=== PATIENT | male | born 1930 | race Caucasian/White ===

== ENCOUNTER 2016-05-05 11:02 | Day surgery (SDC) | payer MEDICARE, OTHER ==
[~2016-05-05 11:02] MED LIST: ACTIVASE50 MG IV; ACTOS15 M1 PO; ALDACTAZIDE 25/1 TAB; AMBIEN5 M1 PO; ARTHX DS CAPSUL1 CAP; ASPIRIN LOW STR81 MG; ASPIRIN81 M1 PO; BALSALAZIDE DI750 M4 PO; CALCIUM CARBON500 M2 PO; CALCIUM600 M1 PO; CERTAVITE-ANTI1 EACH PO; COLACE100 M1 PO; COLAZAL750 M1 PO; COLAZAL750 MG; CPAP; DEXTROSE 525 GM/501 IV; DIOVAN80 M1 PO; FENTANYL IV; FERROUS SULFAT325 MG PO; FISH OIL1 CAP; FLOMAX0.4 M1 PO; GABAPENTIN100 M1 PO; GLUCAGON HCL1 MG IM; GLUCOPHAGE1000 M1 PO; GLUCOPHAGE1000 MG; HYDROCODON-ACE1 EA16 PO; IRON1 TA1; LEVAQUIN750 M1 PO; LEVEMIR FL100 UNIT/2 SC; LEVEMIR100 UNITS/ SC; LOVENOX40 MG/0.1 SC; METFORMIN HCL500 M5 PO; MILK OF MAGNESIA PO; MULTIVITAMIN1 CAP; MULTIVITAMINS1 EAC6 PO; NIACIN ER500 M1 PO; NIACIN PO; NIASPAN500 M1; NIASPAN500 M1 PO; NITROGLYCERIN0.4 M2 PO; NORCO 5-325 TA1 EACH PO; NOVOLOG100 UNITS/ SC; OMEGA 3 FISH O1 EACH PO; PERCOCET 5-3251 EACH PO; ROPINIROLE HCL2 M2 PO; SODIUM CHORIDE IV; SPIRONOLACTONE1 EACH PO; TYLENOL325 M2 PO; VICTOZA 2-0.6 MG/0.1; VITAMIN D250000 UNI1 PO; ZOSYN 4.54.5 GM/102 IV
[2016-05-12] MEDS ORDERED: LEVAQUIN750 M1 PO (09:11)
[2016-05-16] MEDS ORDERED: LEVAQUIN750 M1 PO (14:30)
[2016-06-05] MEDS ORDERED: LEVAQUIN750 M1 PO (14:37)
[2016-06-16] MEDS ORDERED: LASIX40 M1 PO (10:27)
[2016-08-19] MEDS ORDERED: NOVOLOG100 UNITS/ (15:21)
[2016-08-22] MEDS ORDERED: HYDROCODON-ACE1 EA16 PO (08:37)
[2016-09-29] MEDS ORDERED: REQUIP2 M1 PO (10:28)
[2016-09-29] MEDS ORDERED: VASCULERA630 MG PO (10:28)
[2016-09-29] MEDS ORDERED: PENTOXIFYLLINE400 M2 PO (10:29)
[2016-10-28] MEDS ORDERED: CERTAVITE-ANTI1 EACH PO (10:33)
== END 2016-05-06 18:00 ==
LOC: SRG 11:02 → SHSC 11:03 → ORW 12:56 → PACU 13:58 → BURN 16:00
PROVIDERS: Surgery
PROC: 0HRLXK3 Replacement of Left Lower Leg Skin with Nonautologous Tissue Substitute, Full Thickness, External Approach (ICD-10-PCS; principal; 2016-05-05)
DX: S81.802A Unspecified open wound, left lower leg, initial encounter (principal); I25.10 Atherosclerotic heart disease of native coronary artery without angina pectoris; E66.01 Morbid (severe) obesity due to excess calories; E78.5 Hyperlipidemia, unspecified; I87.2 Venous insufficiency (chronic) (peripheral); M19.032 Primary osteoarthritis, left wrist; M19.022 Primary osteoarthritis, left elbow; I12.9 Hypertensive chronic kidney disease with stage 1 through stage 4 chronic kidney disease, or unspecified chronic kidney disease; E11.22 Type 2 diabetes mellitus with diabetic chronic kidney disease; N18.9 Chronic kidney disease, unspecified; H91.90 Unspecified hearing loss, unspecified ear; N40.0 Benign prostatic hyperplasia without lower urinary tract symptoms; G47.30 Sleep apnea, unspecified; Z79.2 Long term (current) use of antibiotics; Z79.4 Long term (current) use of insulin; Z79.82 Long term (current) use of aspirin; Z79.899 Other long term (current) drug therapy; Z86.19 Personal history of other infectious and parasitic diseases; Z98.49 Cataract extraction status, unspecified eye; Z97.4 Presence of external hearing-aid; Z95.5 Presence of coronary angioplasty implant and graft; Z98.890 Other specified postprocedural states
CPT/HCPCS: J0171; J1170; J1580; J1815; J3010; J3370; Q4104

== ENCOUNTER 2016-05-20 05:34 | Day surgery (SDC) | payer MEDICARE, OTHER ==
[2016-05-21 06:21] LABS: BASO % 0.1 % (0-2); EOS % 0.6 % (0-7); EOSINOPHIL ABSOLUTE COUNT 0.1 tho/cmm (0.0-0.7); HCT-HEMATOCRIT 35.3 % (36.0-53.5); HGB-HEMOGLOBIN 11.5 gm/dl (13.5-17.0); IMMATURE GRANULOCYTES ABSOLUTE 0.03 tho/cmm (0-0.03); IMMATURE GRANULOCYTES PERCENT 0.4 % (0-0.3); LYMPH % 22.6 % (20-45); LYMPH ABSOLUTE COUNT 1.8 tho/cmm (0.8-4.5); MCH (MEAN CORPUSCULAR HGB) 29.2 pg (28.0-32.0); MCHC MEAN CORPUSCULAR HGB CONC 32.6 % (32.0-36.0); MCV (MEAN CELL VOLUME) 89.6 fl (82.0-96.0); MEAN PLATELET VOLUME 8.5 cmc (9.4-12.4); MONO % 7.5 % (0-12); MONOCYTE ABSOLUTE COUNT 0.6 tho/cmm (0.0-1.2); NEUTROPHIL ABSOLUTE COUNT 5.6 tho/cmm (1.6-8.0); NEUTROPHIL-AUTOMATED 5.6 tho/cmm (1.6-8.0); NEUTROPHILS % 68.8 % (40-80); PLATELET COUNT 250 tho/cmm (150-450); RED BLOOD COUNT 3.94 mil/cmm (4.40-5.70); RED CELL DISTRIBUTION WIDTH 16.5 % (12.4-16.4); WHITE BLOOD COUNT 8.1 tho/cmm (4.0-10.0)
[2016-05-21 06:32] LABS: ANION GAP 11 mmol/L (0-20); BLOOD UREA NITROGEN 38 mg/dl (6-24); CALCIUM 8.6 mg/dl (8.5-10.5); CARBON DIOXIDE-VENOUS 26 mmol/L (22-32); CHLORIDE 105 mmol/l (96-110); CREATININE 1.31 mg/dl (0.60-1.30); GLUCOSE 104 mg/dL (70-110); POTASSIUM 4.4 mmol/L (3.7-5.1); SODIUM 138 mmol/L (135-145); eGFR VALUE FOR BLACK 56 mL/Min
[2016-06-05] MEDS ORDERED: LEVAQUIN750 M1 PO (14:37)
[2016-06-16] MEDS ORDERED: LASIX40 M1 PO (10:27)
[2016-08-19] MEDS ORDERED: NOVOLOG100 UNITS/ (15:21)
[2016-08-22] MEDS ORDERED: HYDROCODON-ACE1 EA16 PO (08:37)
[2016-09-29] MEDS ORDERED: VASCULERA630 MG PO (10:28)
[2016-09-29] MEDS ORDERED: REQUIP2 M1 PO (10:28)
[2016-09-29] MEDS ORDERED: PENTOXIFYLLINE400 M2 PO (10:29)
[2016-10-28] MEDS ORDERED: CERTAVITE-ANTI1 EACH PO (10:33)
== END 2016-05-21 12:45 ==
LOC: SRG 05:34 → SHSA 05:36 → BURN 09:20
PROVIDERS: Surgery
PROC: 0HBLXZZ Excision of Left Lower Leg Skin, External Approach (ICD-10-PCS; principal; 2016-05-21)
DX: L97.829 Non-pressure chronic ulcer of other part of left lower leg with unspecified severity (principal); E11.9 Type 2 diabetes mellitus without complications; E55.9 Vitamin D deficiency, unspecified; I10 Essential (primary) hypertension; I25.10 Atherosclerotic heart disease of native coronary artery without angina pectoris; K50.90 Crohn's disease, unspecified, without complications; R60.0 Localized edema; Z79.84 Long term (current) use of oral hypoglycemic drugs; Z79.4 Long term (current) use of insulin; Z79.899 Other long term (current) drug therapy; Z82.49 Family history of ischemic heart disease and other diseases of the circulatory system; Z98.41 Cataract extraction status, right eye; Z98.42 Cataract extraction status, left eye; Z85.828 Personal history of other malignant neoplasm of skin
CPT/HCPCS: G8978-GP-CJ; G8979-GP-CJ; G8980-GP-CJ; J0171; J0690; J1580; J1815; J3370

== ENCOUNTER 2016-07-15 14:01 | Inpatient (IN) | payer MEDICARE, OTHER ==
[~2016-07-15 14:01] MED LIST changes: +LASIX40 M1 PO
[2016-07-15] MEDS ORDERED: VICTOZA 3-0.6 MG/0.2 (14:28)
[2016-07-15 15:26] LABS: BASO % 0.3 % (0-2); EOS % 2.1 % (0-7); EOSINOPHIL ABSOLUTE COUNT 0.2 tho/cmm (0.0-0.7); HCT-HEMATOCRIT 33.9 % (36.0-53.5); HGB-HEMOGLOBIN 11.2 gm/dl (13.5-17.0); IMMATURE GRANULOCYTES ABSOLUTE 0.01 tho/cmm (0-0.03); IMMATURE GRANULOCYTES PERCENT 0.1 % (0-0.3); LYMPH % 27.8 % (20-45); MCH (MEAN CORPUSCULAR HGB) 28.6 pg (28.0-32.0); MCV (MEAN CELL VOLUME) 86.5 fl (82.0-96.0); MEAN PLATELET VOLUME 8.1 cmc (9.4-12.4); MONO % 11.5 % (0-12); MONOCYTE ABSOLUTE COUNT 0.8 tho/cmm (0.0-1.2); NEUTROPHIL ABSOLUTE COUNT 4.2 tho/cmm (1.6-8.0); NEUTROPHIL-AUTOMATED 4.2 tho/cmm (1.6-8.0); NEUTROPHILS % 58.2 % (40-80); PLATELET COUNT 261 tho/cmm (150-450); RED BLOOD COUNT 3.92 mil/cmm (4.40-5.70); RED CELL DISTRIBUTION WIDTH 15.2 % (12.4-16.4); WHITE BLOOD COUNT 7.2 tho/cmm (4.0-10.0)
[2016-07-15 15:41] LABS: ANION GAP 12 mmol/L (0-20); BLOOD UREA NITROGEN 50 mg/dl (6-24); CARBON DIOXIDE-VENOUS 26 mmol/L (22-32); CHLORIDE 106 mmol/l (96-110); CREATININE 1.89 mg/dl (0.60-1.30); GLUCOSE 169 mg/dL (70-110); PREALBUMIN 11.4 mg/dl (20.0-40.0); SODIUM 139 mmol/L (135-145); eGFR VALUE FOR BLACK 36 mL/Min
[2016-07-16 10:06] LABS: BASO % 0.3 % (0-2); EOS % 3.4 % (0-7); EOSINOPHIL ABSOLUTE COUNT 0.3 tho/cmm (0.0-0.7); HCT-HEMATOCRIT 35.1 % (36.0-53.5); HGB-HEMOGLOBIN 11.5 gm/dl (13.5-17.0); IMMATURE GRANULOCYTES ABSOLUTE 0.01 tho/cmm (0-0.03); IMMATURE GRANULOCYTES PERCENT 0.1 % (0-0.3); LYMPH % 12.6 % (20-45); MCH (MEAN CORPUSCULAR HGB) 28.4 pg (28.0-32.0); MCHC MEAN CORPUSCULAR HGB CONC 32.8 % (32.0-36.0); MCV (MEAN CELL VOLUME) 86.7 fl (82.0-96.0); MEAN PLATELET VOLUME 8.4 cmc (9.4-12.4); MONO % 13.8 % (0-12); MONOCYTE ABSOLUTE COUNT 1.1 tho/cmm (0.0-1.2); NEUTROPHIL ABSOLUTE COUNT 5.3 tho/cmm (1.6-8.0); NEUTROPHIL-AUTOMATED 5.3 tho/cmm (1.6-8.0); NEUTROPHILS % 69.8 % (40-80); PLATELET COUNT 264 tho/cmm (150-450); RED BLOOD COUNT 4.05 mil/cmm (4.40-5.70); WHITE BLOOD COUNT 7.6 tho/cmm (4.0-10.0)
[2016-07-16 10:20] LABS: ANION GAP 12 mmol/L (0-20); BLOOD UREA NITROGEN 40 mg/dl (6-24); C-REACTIVE PROTEIN 9.6 mg/dl (0-0.9); CALCIUM 8.7 mg/dl (8.5-10.5); CARBON DIOXIDE-VENOUS 25 mmol/L (22-32); CHLORIDE 105 mmol/l (96-110); CREATININE 1.56 mg/dl (0.60-1.30); GLUCOSE 108 mg/dL (70-110); SODIUM 137 mmol/L (135-145); eGFR VALUE FOR BLACK 46 mL/Min
[2016-07-17 05:40] LABS: BASO % 0.4 % (0-2); EOSINOPHIL ABSOLUTE COUNT 0.4 tho/cmm (0.0-0.7); HCT-HEMATOCRIT 31.4 % (36.0-53.5); HGB-HEMOGLOBIN 10.4 gm/dl (13.5-17.0); IMMATURE GRANULOCYTES ABSOLUTE 0.01 tho/cmm (0-0.03); IMMATURE GRANULOCYTES PERCENT 0.2 % (0-0.3); LYMPH % 22.7 % (20-45); LYMPH ABSOLUTE COUNT 1.2 tho/cmm (0.8-4.5); MCH (MEAN CORPUSCULAR HGB) 28.5 pg (28.0-32.0); MCHC MEAN CORPUSCULAR HGB CONC 33.1 % (32.0-36.0); MEAN PLATELET VOLUME 8.2 cmc (9.4-12.4); MONO % 17.4 % (0-12); MONOCYTE ABSOLUTE COUNT 0.9 tho/cmm (0.0-1.2); NEUTROPHIL ABSOLUTE COUNT 2.7 tho/cmm (1.6-8.0); NEUTROPHIL-AUTOMATED 2.7 tho/cmm (1.6-8.0); NEUTROPHILS % 52.3 % (40-80); PLATELET COUNT 235 tho/cmm (150-450); RED BLOOD COUNT 3.65 mil/cmm (4.40-5.70); RED CELL DISTRIBUTION WIDTH 14.9 % (12.4-16.4); WHITE BLOOD COUNT 5.1 tho/cmm (4.0-10.0)
[2016-07-17 05:57] LABS: ALBUMIN 2.1 g/dl (3.5-5.0); ANION GAP 11 mmol/L (0-20); BLOOD UREA NITROGEN 36 mg/dl (6-24); C-REACTIVE PROTEIN 11.3 mg/dl (0-0.9); CALCIUM 8.4 mg/dl (8.5-10.5); CARBON DIOXIDE-VENOUS 25 mmol/L (22-32); CHLORIDE 107 mmol/l (96-110); CREATININE 1.38 mg/dl (0.60-1.30); MAGNESIUM 1.9 mg/dl (1.8-2.6); PHOSPHOROUS 3.3 mg/dl (2.5-4.9); POTASSIUM 4.4 mmol/L (3.7-5.1); PREALBUMIN 8.3 mg/dl (20.0-40.0); SODIUM 139 mmol/L (135-145); eGFR VALUE FOR BLACK 53 mL/Min
[2016-07-17 06:01] LABS: GLUCOSE 46 mg/dL (70-110)
[2016-07-17 06:38] LABS: PROCALCITONIN 0.16 ng/ml (0.05-0.09)
[2016-07-18 05:46] LABS: ABG CO2 ARTERIAL 25 mmol/L (21-27); ARTERIAL BLD GAS O2 SATURATION 95 % (95-98); ARTERIAL BLOOD GAS PCO2 38 mmHg (32-45); ARTERIAL PO2 76 mmHg (70-100); BICARBONATE 24 mmol/L (21-28); BLOOD GAS BASE EXCESS 1 mM/L (-/+3); PH 7.42 Units (7.35-7.45)
[2016-07-18 06:28] LABS: BASO % 0.6 % (0-2); EOS % 9.9 % (0-7); EOSINOPHIL ABSOLUTE COUNT 0.5 tho/cmm (0.0-0.7); HCT-HEMATOCRIT 31.8 % (36.0-53.5); HGB-HEMOGLOBIN 10.6 gm/dl (13.5-17.0); IMMATURE GRANULOCYTES ABSOLUTE 0.01 tho/cmm (0-0.03); IMMATURE GRANULOCYTES PERCENT 0.2 % (0-0.3); LYMPH % 34.3 % (20-45); LYMPH ABSOLUTE COUNT 1.6 tho/cmm (0.8-4.5); MCH (MEAN CORPUSCULAR HGB) 28.4 pg (28.0-32.0); MCHC MEAN CORPUSCULAR HGB CONC 33.3 % (32.0-36.0); MCV (MEAN CELL VOLUME) 85.3 fl (82.0-96.0); MONO % 18.2 % (0-12); MONOCYTE ABSOLUTE COUNT 0.9 tho/cmm (0.0-1.2); NEUTROPHIL ABSOLUTE COUNT 1.7 tho/cmm (1.6-8.0); NEUTROPHIL-AUTOMATED 1.7 tho/cmm (1.6-8.0); NEUTROPHILS % 36.8 % (40-80); PLATELET COUNT 241 tho/cmm (150-450); RED BLOOD COUNT 3.73 mil/cmm (4.40-5.70); RED CELL DISTRIBUTION WIDTH 14.8 % (12.4-16.4); WHITE BLOOD COUNT 4.7 tho/cmm (4.0-10.0)
[2016-07-18 06:33] LABS: ALBUMIN 2.1 g/dl (3.5-5.0); ANION GAP 9 mmol/L (0-20); BLOOD UREA NITROGEN 29 mg/dl (6-24); C-REACTIVE PROTEIN 9.3 mg/dl (0-0.9); CALCIUM 8.4 mg/dl (8.5-10.5); CARBON DIOXIDE-VENOUS 26 mmol/L (22-32); CHLORIDE 107 mmol/l (96-110); CREATININE 1.34 mg/dl (0.60-1.30); PHOSPHOROUS 2.7 mg/dl (2.5-4.9); SODIUM 138 mmol/L (135-145); eGFR VALUE FOR BLACK 55 mL/Min
[2016-07-18 06:41] LABS: GLUCOSE 46 mg/dL (70-110)
[2016-07-18 06:43] LABS: PROCALCITONIN 0.17 ng/ml (0.05-0.09)
[2016-07-19 05:44] LABS: BASO % 1.1 % (0-2); EOS % 9.2 % (0-7); EOSINOPHIL ABSOLUTE COUNT 0.3 tho/cmm (0.0-0.7); HCT-HEMATOCRIT 31.6 % (36.0-53.5); HGB-HEMOGLOBIN 10.6 gm/dl (13.5-17.0); IMMATURE GRANULOCYTES ABSOLUTE 0.01 tho/cmm (0-0.03); IMMATURE GRANULOCYTES PERCENT 0.3 % (0-0.3); LYMPH % 26.1 % (20-45); LYMPH ABSOLUTE COUNT 0.9 tho/cmm (0.8-4.5); MCH (MEAN CORPUSCULAR HGB) 28.6 pg (28.0-32.0); MCHC MEAN CORPUSCULAR HGB CONC 33.5 % (32.0-36.0); MCV (MEAN CELL VOLUME) 85.4 fl (82.0-96.0); MONO % 19.9 % (0-12); MONOCYTE ABSOLUTE COUNT 0.7 tho/cmm (0.0-1.2); NEUTROPHIL ABSOLUTE COUNT 1.6 tho/cmm (1.6-8.0); NEUTROPHIL-AUTOMATED 1.6 tho/cmm (1.6-8.0); NEUTROPHILS % 43.4 % (40-80); PLATELET COUNT 251 tho/cmm (150-450); RED CELL DISTRIBUTION WIDTH 14.9 % (12.4-16.4); WHITE BLOOD COUNT 3.6 tho/cmm (4.0-10.0)
[2016-07-19 05:58] LABS: ANION GAP 11 mmol/L (0-20); BLOOD UREA NITROGEN 26 mg/dl (6-24); C-REACTIVE PROTEIN 6.2 mg/dl (0-0.9); CALCIUM 8.5 mg/dl (8.5-10.5); CARBON DIOXIDE-VENOUS 24 mmol/L (22-32); CHLORIDE 105 mmol/l (96-110); CREATININE 1.29 mg/dl (0.60-1.30); POTASSIUM 4.4 mmol/L (3.7-5.1); SODIUM 136 mmol/L (135-145); eGFR VALUE FOR BLACK 57 mL/Min
[2016-07-19 06:00] LABS: GLUCOSE 183 mg/dL (70-110)
[2016-07-20 06:08] LABS: BASO % 1.1 % (0-2); BASO ABSOLUTE COUNT 0.1 tho/cmm (0.0-0.2); EOS % 9.2 % (0-7); EOSINOPHIL ABSOLUTE COUNT 0.4 tho/cmm (0.0-0.7); HCT-HEMATOCRIT 33.5 % (36.0-53.5); HGB-HEMOGLOBIN 11.3 gm/dl (13.5-17.0); IMMATURE GRANULOCYTES ABSOLUTE 0.01 tho/cmm (0-0.03); IMMATURE GRANULOCYTES PERCENT 0.2 % (0-0.3); LYMPH % 29.8 % (20-45); LYMPH ABSOLUTE COUNT 1.4 tho/cmm (0.8-4.5); MCH (MEAN CORPUSCULAR HGB) 28.5 pg (28.0-32.0); MCHC MEAN CORPUSCULAR HGB CONC 33.7 % (32.0-36.0); MCV (MEAN CELL VOLUME) 84.6 fl (82.0-96.0); MEAN PLATELET VOLUME 7.9 cmc (9.4-12.4); MONO % 20.4 % (0-12); MONOCYTE ABSOLUTE COUNT 0.9 tho/cmm (0.0-1.2); NEUTROPHIL ABSOLUTE COUNT 1.8 tho/cmm (1.6-8.0); NEUTROPHIL-AUTOMATED 1.8 tho/cmm (1.6-8.0); NEUTROPHILS % 39.3 % (40-80); PLATELET COUNT 242 tho/cmm (150-450); RED BLOOD COUNT 3.96 mil/cmm (4.40-5.70); RED CELL DISTRIBUTION WIDTH 14.7 % (12.4-16.4); WHITE BLOOD COUNT 4.6 tho/cmm (4.0-10.0)
[2016-07-20 06:17] LABS: ANION GAP 10 mmol/L (0-20); BLOOD UREA NITROGEN 24 mg/dl (6-24); CALCIUM 8.7 mg/dl (8.5-10.5); CARBON DIOXIDE-VENOUS 25 mmol/L (22-32); CHLORIDE 106 mmol/l (96-110); CREATININE 1.24 mg/dl (0.60-1.30); GLUCOSE 111 mg/dL (70-110); POTASSIUM 4.1 mmol/L (3.7-5.1); SODIUM 137 mmol/L (135-145); eGFR VALUE FOR BLACK 60 mL/Min
[2016-07-21 07:56] LABS: BASO % 1.8 % (0-2); BASO ABSOLUTE COUNT 0.1 tho/cmm (0.0-0.2); EOS % 12.2 % (0-7); EOSINOPHIL ABSOLUTE COUNT 0.6 tho/cmm (0.0-0.7); HCT-HEMATOCRIT 34.3 % (36.0-53.5); HGB-HEMOGLOBIN 11.2 gm/dl (13.5-17.0); LYMPH % 35.2 % (20-45); LYMPH ABSOLUTE COUNT 1.6 tho/cmm (0.8-4.5); MCH (MEAN CORPUSCULAR HGB) 27.9 pg (28.0-32.0); MCHC MEAN CORPUSCULAR HGB CONC 32.7 % (32.0-36.0); MCV (MEAN CELL VOLUME) 85.5 fl (82.0-96.0); MONO % 22.5 % (0-12); NEUTROPHIL ABSOLUTE COUNT 1.3 tho/cmm (1.6-8.0); NEUTROPHIL-AUTOMATED 1.3 tho/cmm (1.6-8.0); NEUTROPHILS % 28.3 % (40-80); PLATELET COUNT 313 tho/cmm (150-450); RED BLOOD COUNT 4.01 mil/cmm (4.40-5.70); RED CELL DISTRIBUTION WIDTH 14.8 % (12.4-16.4); WHITE BLOOD COUNT 4.5 tho/cmm (4.0-10.0)
[2016-07-21 08:08] LABS: ANION GAP 12 mmol/L (0-20); BLOOD UREA NITROGEN 21 mg/dl (6-24); C-REACTIVE PROTEIN 2.8 mg/dl (0-0.9); CALCIUM 8.8 mg/dl (8.5-10.5); CARBON DIOXIDE-VENOUS 23 mmol/L (22-32); CHLORIDE 107 mmol/l (96-110); CREATININE 1.17 mg/dl (0.60-1.30); GLUCOSE 156 mg/dL (70-110); POTASSIUM 4.3 mmol/L (3.7-5.1); SODIUM 138 mmol/L (135-145); eGFR VALUE FOR BLACK 65 mL/Min
[2016-07-22 06:01] LABS: BASO % 1.1 % (0-2); BASO ABSOLUTE COUNT 0.1 tho/cmm (0.0-0.2); EOSINOPHIL ABSOLUTE COUNT 0.5 tho/cmm (0.0-0.7); HCT-HEMATOCRIT 35.7 % (36.0-53.5); IMMATURE GRANULOCYTES ABSOLUTE 0.03 tho/cmm (0-0.03); IMMATURE GRANULOCYTES PERCENT 0.7 % (0-0.3); LYMPH % 41.7 % (20-45); LYMPH ABSOLUTE COUNT 1.9 tho/cmm (0.8-4.5); MCH (MEAN CORPUSCULAR HGB) 28.4 pg (28.0-32.0); MCHC MEAN CORPUSCULAR HGB CONC 33.6 % (32.0-36.0); MCV (MEAN CELL VOLUME) 84.6 fl (82.0-96.0); MEAN PLATELET VOLUME 8.1 cmc (9.4-12.4); MONO % 16.9 % (0-12); MONOCYTE ABSOLUTE COUNT 0.8 tho/cmm (0.0-1.2); NEUTROPHIL ABSOLUTE COUNT 1.3 tho/cmm (1.6-8.0); NEUTROPHIL-AUTOMATED 1.3 tho/cmm (1.6-8.0); NEUTROPHILS % 28.6 % (40-80); PLATELET COUNT 276 tho/cmm (150-450); RED BLOOD COUNT 4.22 mil/cmm (4.40-5.70); RED CELL DISTRIBUTION WIDTH 14.9 % (12.4-16.4); WHITE BLOOD COUNT 4.6 tho/cmm (4.0-10.0)
[2016-07-22] MEDS ORDERED: LEVEMIR100 UNITS/ SC (10:21)
[2016-07-22] MEDS ORDERED: LEVAQUIN750 M1 PO (10:22)
[2016-07-22] MEDS ORDERED: PERCOCET 5-3251 EACH PO (10:23)
[2016-08-19] MEDS ORDERED: NOVOLOG100 UNITS/ (15:21)
[2016-08-22] MEDS ORDERED: HYDROCODON-ACE1 EA16 PO (08:37)
[2016-09-29] MEDS ORDERED: REQUIP2 M1 PO (10:28)
[2016-09-29] MEDS ORDERED: VASCULERA630 MG PO (10:28)
[2016-09-29] MEDS ORDERED: PENTOXIFYLLINE400 M2 PO (10:29)
[2016-10-28] MEDS ORDERED: CERTAVITE-ANTI1 EACH PO (10:33)
== END 2016-07-22 11:24 | DRG 571 ==
LOC: BRNOP 14:01 → BURN 14:36 → ORW 07-19 09:02 → BURN 07-19 10:36
PROVIDERS: Internal Medicine Infectious Disease; ADMIT Surgery
PROC: 02HV33Z Insertion of Infusion Device into Superior Vena Cava, Percutaneous Approach (ICD-10-PCS; principal; 2016-07-19)
PROC: 0JBP0ZZ Excision of Left Lower Leg Subcutaneous Tissue and Fascia, Open Approach (ICD-10-PCS; 2016-07-19)
DX: L03.116 Cellulitis of left lower limb (principal); N17.9 Acute kidney failure, unspecified; I10 Essential (primary) hypertension; I25.10 Atherosclerotic heart disease of native coronary artery without angina pectoris; G47.33 Obstructive sleep apnea (adult) (pediatric); E11.42 Type 2 diabetes mellitus with diabetic polyneuropathy
CPT/HCPCS: C1751; G0463; G8978-GP-CJ; G8979-GP-CJ; J0171; J1580; J1815; J1940; J2250; J2543; J3010; J3370; J7030; Q4104